=== PATIENT | female | born 1995 | race Caucasian/White ===

== ENCOUNTER 2017-11-13 12:41 | Emergency (ER) | payer SELFPAY ==
[~2017-11-13] VITALS: Ht 162.6 cm; Wt 70.3 kg
[2017-11-13 13:25] LABS: BILIRUBIN,URINE NEG (NEG); CLARITY,URINE CLEAR; COLOR,URINE YELLOW; GLUCOSE,URINE NEG (NEG); NITRITE,URINE NEG (NEG); UROBILINOGEN,URINE 0.2 mg/dL (0.2 mg/dL)
--- NOTE | 2017-11-13 15:06 | PHYS DOC ---
Past History Past Medical History: No Pertinent History, Ovarian Cyst Past Surgical History: Other Smoking: Cigarettes Alcohol Use: None Drug Use: None Adult General Chief Complaint Chief Complaint: FLANK PAIN HPI HPI 22-year-old female patient states she thinks she is going to have a UTI because she has some discomfort feeling in her flank and low back for the last few days without dyspnea. Patient also complaining of some rash in her genital area for the same time with mild itching without vaginal discharge, abdominal pain, new sexual partner, history of STD. Review of Systems Review of Systems Constitutional: Denies fever or chills [] Eyes: Denies change in visual acuity, redness, or eye pain [] HENT: Denies nasal congestion or sore throat [] Respiratory: Denies cough or shortness of breath [] Cardiovascular: No additional information not addressed in HPI [] GI: Denies abdominal pain, nausea, vomiting, bloody stools or diarrhea [] : Denies dysuria or hematuria, reports flank pain and urinary frequency Musculoskeletal: Denies back pain or joint pain [] Integument: Denies rash or skin lesions [] Neurologic: Denies headache, focal weakness or sensory changes [] Endocrine: Denies polyuria or polydipsia [] All other systems were reviewed and found to be within normal limits, except as documented in this note. Allergies Allergies Allergies Coded Allergies Type Severity Reaction Last Updated Verified No Known Drug Allergies 04/02/16 No Physical Exam Physical Exam Constitutional: Well developed, well nourished, no acute distress, non-toxic appearance. [] HENT: Normocephalic, atraumatic, bilateral external ears normal, oropharynx moist, no oral exudates, nose normal. [] Eyes: PERRLA, EOMI, conjunctiva normal, no discharge. [] Neck: Normal range of motion, no tenderness, supple, no stridor. [] Cardiovascular:Heart rate regular rhythm, no murmur [] Lungs & Thorax: Bilateral breath sounds clear to auscultation [] Abdomen: Bowel sounds normal, soft, no tenderness, no masses, no pulsatile masses. [ Vaginal exam with present of e commerce manager showed no external genital lesion or rash , mild vaginal discharge without tenderness or adnexal masses or bleeding] Skin: Warm, dry, no erythema, no rash. [] Back: No tenderness, no CVA tenderness. [] Extremities: No tenderness, no cyanosis, no clubbing, ROM intact, no edema. [] Neurologic: Alert and oriented X 3, normal motor function, normal sensory function, no focal deficits noted. [] Psychologic: Affect normal, judgement normal, mood normal. [] Current Patient Data Vital Signs Vital Signs Date Time Temp Pulse Resp B/P (MAP) Pulse Ox O2 Delivery O2 Flow Rate FiO2 11/13/17 14:18 71 16 117/60 (79) 99 Room Air 11/13/17 12:53 97.7 Lab Results Laboratory Tests Test 11/13/17 12:50 11/13/17 13:11 Urine Collection Type Unknown Urine Color Yellow Urine Clarity Clear Urine pH 6.0 Urine Specific [place] 1.020 Urine Protein Neg (NEG-TRACE) Urine Glucose (UA) Neg mg/dL (NEG) Urine Ketones (Stick) Neg mg/dL (NEG) Urine Blood Neg (NEG) Urine Nitrite Neg (NEG) Urine Bilirubin Neg (NEG) Urine Urobilinogen Dipstick 0.2 mg/dL (0.2 mg/dL) Urine Leukocyte Esterase Neg (NEG) POC Urine HCG, Qualitative hcg negative (Negative) EKG EKG [] Radiology/Procedures Radiology/Procedures [] Course & Med Decision Making Course & Med Decision Making Pertinent Labs reviewed. (See chart for details) discharge: I've spoken with the patient and/or caregivers. I've explained the patient's condition, diagnosis and treatment plan based on information available to me at this time. I've answered the patient's and/or caregivers questions and addressed any concerns. The patient and/or caregivers have a good understanding the patient's diagnosis, condition and treatment plan as can be expected at this point. Vital signs have been stabilized. The patient's condition is stable for discharge from the emergency department. The patient will pursue further outpatient evaluation with her primary care provider or other designated consulting physician as outlined in the discharge instructions. Patient and/or caregivers are agreeable to this plan of care and follow-up instructions have been explained in detail. The patient and/or caregivers have received these instructions in written format and expressed understanding of these discharge instructions. The patient and her caregivers are aware that if any significant change in condition or worsening of symptoms should prompt him to immediately return to this of the closest emergency department. If an emergent department is not readily available I would encourage him to call 911. [] Jojo Disclaimer Dragon Disclaimer This electronic medical record was generated, in whole or in part, using a voice recognition dictation system. Departure Departure: Impression: Primary Impression: Bacterial vaginitis Disposition: HOME, SELF-CARE (At 1543) Condition: STABLE Referrals: PCP,NO (PCP) Patient Instructions: Vaginitis, [id number] Additional Instructions: Drink plenty of liquids Follow-up with your primary care physician in 3-5 days Return to ER if not getting better Scripts Metronidazole (FLAGYL) 500 Mg Tablet 1 TAB PO BID, #14 TAB Prov: CLARENCE WHYTE MD 11/13/17 CLARENCE WHYTE MD Nov 13, 2017 15:06
[2017-11-13] MEDS ORDERED: METR500T PO (15:47)
[2017-11-13 15:58] VITALS: BP 116/64
[2017-11-14 14:11] LABS: CHLAMYDIA PROBE Negative (Negative)
== END 2017-11-13 16:01 | disposition home or self-care (01) ==
LOC: ER 12:41
DX: N76.0 Acute vaginitis (principal); B96.89 Other specified bacterial agents as the cause of diseases classified elsewhere; F17.210 Nicotine dependence, cigarettes, uncomplicated; R21 Rash and other nonspecific skin eruption; L29.9 Pruritus, unspecified
CPT/HCPCS: 36415; 81003; 81025; 87491; 87591; 99284; Q0111

== ENCOUNTER 2018-03-09 18:13 | Emergency (ER) | payer SELFPAY ==
[~2018-03-09] VITALS: Ht 162.6 cm; Wt 70.3 kg
[~2018-03-09 18:13] MED LIST: METR500T PO
--- NOTE | 2018-03-09 19:00 | PHYS DOC ---
Past History Past Medical History: No Pertinent History, Ovarian Cyst Past Surgical History: Other Smoking: Cigarettes Alcohol Use: None Drug Use: None Adult General Chief Complaint Chief Complaint: PAIN ON URINATION [facility] HPI 22-year-old female presents with dysuria and increased urinary frequency. Last 2 days. She has a history of urinary tract infections and this feels like one. She denies vaginal discharge. She has no concern for STD. She denies any other symptoms or complaints. She has no fever. Review of Systems Review of Systems Constitutional: Denies fever or chills [] Eyes: Denies change in visual acuity, redness, or eye pain [] HENT: Denies nasal congestion or sore throat [] Respiratory: Denies cough or shortness of breath [] Cardiovascular: No additional information not addressed in HPI [] GI: Denies abdominal pain, nausea, vomiting, bloody stools or diarrhea [] : Has dysuria and urinary frequency [] Musculoskeletal: Denies back pain or joint pain [] Integument: Denies rash or skin lesions [] Neurologic: Denies headache, focal weakness or sensory changes [] Endocrine: Denies polyuria or polydipsia [] All other systems were reviewed and found to be within normal limits, except as documented in this note. Allergies Allergies Allergies Coded Allergies Type Severity Reaction Last Updated Verified No Known Drug Allergies 04/02/16 No Physical Exam Physical Exam Constitutional: Well developed, well nourished, no acute distress, non-toxic appearance. [] HENT: Normocephalic, atraumatic, bilateral external ears normal, oropharynx moist, no oral exudates, nose normal. [] Eyes: PERRLA, EOMI, conjunctiva normal, no discharge. [] Neck: Normal range of motion, no tenderness, supple, no stridor. [] Cardiovascular:Heart rate regular rhythm, no murmur [] Lungs & Thorax: Bilateral breath sounds clear to auscultation [] Abdomen: Bowel sounds normal, soft, no tenderness, no masses, no pulsatile masses. [] Skin: Warm, dry, no erythema, no rash. [] Back: No tenderness, no CVA tenderness. [] Extremities: No tenderness, no cyanosis, no clubbing, ROM intact, no edema. [] Neurologic: Alert and oriented X 3, normal motor function, normal sensory function, no focal deficits noted. [] Psychologic: Affect normal, judgement normal, mood normal. [] EKG EKG [] Radiology/Procedures Radiology/Procedures [] Course & Med Decision Making Course & Med Decision Making Pertinent Labs and Imaging studies reviewed. (See chart for details) The patient's labs show that she has a UTI. I will treat her with Keflex 1 g twice a day for 3 days. [] Dragon Disclaimer Dragon Disclaimer This electronic medical record was generated, in whole or in part, using a voice recognition dictation system. Departure Departure: Referrals: PCP,NO (PCP) ROBSON WEBER DO Mar 09, 2018 19:00
[2018-03-09 19:07] LABS: BILIRUBIN,URINE NEG (NEG); CLARITY,URINE HAZY; COLOR,URINE YELLOW; GLUCOSE,URINE NEG (NEG); NITRITE,URINE NEG (NEG); UROBILINOGEN,URINE 0.2 mg/dL (0.2 mg/dL)
[2018-03-09 19:08] LABS: BACTERIA,URINE MANY /HPF (0-FEW); SQUAMOUS EPITHELIAL CELL,UR MANY /LPF; WBC,URINE 20-40 /HPF (0-4)
[2018-03-09] MEDS ORDERED: CEPH-264 PO (19:16)
== END 2018-03-09 19:20 | disposition home or self-care (01) ==
LOC: ER 18:13
DX: N39.0 Urinary tract infection, site not specified (principal); F17.210 Nicotine dependence, cigarettes, uncomplicated
CPT/HCPCS: 81001; 87086; 99284

== ENCOUNTER 2020-10-19 19:40 | Emergency (ER) | payer SELFPAY ==
[~2020-10-19] VITALS: Ht 162.6 cm; Wt 71.0 kg
[~2020-10-19 19:40] MED LIST changes: +CEPH-264 PO
[2020-10-19 19:50] VITALS: BP 109/62
== END 2020-10-19 21:20 | disposition left against medical advice (07) ==
LOC: ER 19:40
DX: Z48.00 Encounter for change or removal of nonsurgical wound dressing (principal); Z53.21 Procedure and treatment not carried out due to patient leaving prior to being seen by health care provider

== ENCOUNTER 2021-01-20 19:35 | Emergency (ER) | payer SELFPAY ==
[~2021-01-20] VITALS: Ht 162.6 cm; Wt 71.0 kg
--- NOTE | 2021-01-20 20:11 | PHYS DOC ---
Past History Past Medical History: Bipolar Past Surgical History: Other Additional Past Surgical Histo: OVARIAN CYST Smoking: Cigarettes Alcohol Use: Rarely Drug Use: None General Adult HPI: HPI: Patient is a 25 year old female presents with the chief complaint of redness and swelling of her finger x 2 months. Patient states yesterday she would up with swelling along her right ring finger. Patient states she was bitten by a spider. On exam of right ring finger there is a small area of pus. Patients cap refill of fingers < 2 seconds. Patient is concerned about MRSA-- s tates for 1 week she has been using an Rx topical medications that was prescribed to her mother for cellulitis--- Medication starts with "M" Patient is very anxious on exam. Review of Systems: Review of Systems: Constitutional: Denies fever or chills Eyes: Denies change in visual acuity HENT: Denies nasal congestion or sore throat Respiratory: Denies cough or shortness of breath Cardiovascular: Denies chest pain or edema GI: Denies abdominal pain, nausea, vomiting, bloody stools or diarrhea : Denies dysuria Musculoskeletal: Denies back pain or joint pain Integument: Denies rash Neurologic: Denies headache, focal weakness or sensory changes Endocrine: Denies polyuria or polydipsia Lymphatic: Denies swollen glands Psychiatric: Denies depression or anxiety Allergies: Allergies: Allergies Coded Allergies Type Severity Reaction Last Updated Verified codeine Allergy Unknown 10/19/20 Yes Physical Exam: PE: Constitutional: Well developed, well nourished, no acute distress, non-toxic appearance. [] HENT: Normocephalic, atraumatic, bilateral external ears normal, oropharynx moist, no oral exudates, nose normal. [] Eyes: PERRLA, EOMI, conjunctiva normal, no discharge. [] Neck: Normal range of motion, no tenderness, supple, no stridor. [] Cardiovascular:Heart rate regular rhythm, no murmur [] Lungs & Thorax: Bilateral breath sounds clear to auscultation [] Abdomen: Bowel sounds normal, soft, no tenderness, no masses, no pulsatile masses. [] Skin: Warm, dry, no erythema, no rash. [] Back: No tenderness, no CVA tenderness. [] Extremities: No tenderness, no cyanosis, no clubbing, ROM intact, no edema. [] Neurologic: Alert and oriented X 3, normal motor function, normal sensory function, no focal deficits noted. [] Psychologic: Affect normal, judgement normal, mood normal. [] EKG: EKG: [] Radiology/Procedures: Radiology/Procedures: [] Heart Score: C/O Chest Pain: N/A Risk Factors: Risk Factors: DM, Current or recent (<one month) smoker, HTN, HLP, family history of CAD, obesity. Risk Scores: Score 0 - 3: 2.5% MACE over next 6 weeks - Discharge Home Score 4 - 6: 20.3% MACE over next 6 weeks - Admit for Clinical Observation Score 7 - 10: 72.7% MACE over next 6 weeks - Early Invasive Strategies Course & Med Decision Making: Course & Med Decision Making Pertinent Labs and Imaging studies reviewed. (See chart for details) []let applied to finger-- abscess-- 11 blade used to puncture and drain pus. Small amount of pus expressed. Patient tolerated procedure. Rx keflex. Jojo Disclaimer: Jojo Disclaimer: This electronic medical record was generated, in whole or in part, using a voice recognition dictation system. Departure Departure: Impression: Primary Impression: Cellulitis Additional Impression: Cellulitis and abscess of finger, unspecified Disposition: HOME / SELF CARE / HOMELESS Condition: STABLE Referrals: PCP,ROSANGELA (PCP) Patient Instructions: Abscess, Cellulitis Scripts Cephalexin (CEPHALEXIN) 500 Mg Tablet 1 TAB PO QID for 10 Days, #40 TAB Prov: RC DOMINIQUE DO 01/20/21 RC DOMINIQUE DO January 20, 2021 20:11
[2021-01-20] MEDS: LIDOCAINE/EPI/TETRACAINE TOPICAL GEL 3 ML. TP ONE (20:23)
[2021-01-20] MEDS ORDERED: CEPH500T PO (20:53)
[2021-01-20 21:15] VITALS: BP 110/64
== END 2021-01-20 21:15 | disposition home or self-care (01) ==
LOC: ER 19:35
DX: L03.011 Cellulitis of right finger (principal); F17.210 Nicotine dependence, cigarettes, uncomplicated
CPT/HCPCS: 26010; 99283-25

== ENCOUNTER 2021-10-05 12:40 | Emergency (ER) | payer SELFPAY ==
[~2021-10-05] VITALS: Ht 162.6 cm; Wt 68.0 kg
[~2021-10-05 12:40] MED LIST changes: +CEPH500T PO
[2021-10-05] MEDS ORDERED: ONDA4TAB12 PO (13:22)
--- NOTE | 2021-10-05 13:22 | PHYS DOC ---
Past History Past Medical History: Bipolar Past Surgical History: Other Additional Past Surgical Histo: OVARIAN CYST Smoking: Cigarettes Alcohol Use: Rarely Drug Use: None Adult General HPI HPI Patient is a healthy G4, P3 26-year-old female presenting for nausea. She found out she was 1 week ago via home test. Reports first day last menstrual period was approximately 5 to 6 weeks ago. She reports having nausea with early in the past which has responded well to as needed Zofran. She reports taking a friend Zofran this morning which significantly helped her symptoms, she is requesting a new prescription today until she can be seen and establish care with FIREFIGHTING EQUIPMENT SPECIALIST Review of Systems Review of Systems Fourteen body systems of review of systems have been reviewed. See HPI for pertinent positives and negative responses, other sullivan all other systems are negative, non-pertinent or non-contributory Allergies Allergies Allergies Coded Allergies Type Severity Reaction Last Updated Verified codeine Allergy Unknown 10/19/20 Yes Physical Exam Physical Exam Constitutional: Well developed, well nourished, no acute distress, non-toxic appearance. HENT: Normocephalic, atraumatic, bilateral external ears normal, oropharynx moist, no oral exudates, nose normal. Eyes: PERRLA, EOMI, conjunctiva normal, no discharge. Neck: Normal range of motion, no tenderness, supple, no stridor. Cardiovascular: Heart rate regular, sinus rhythm, no murmurs rubs or gallops Lungs & Thorax: Bilateral breath sounds clear to auscultation Abdomen: Bowel sounds normal, soft, no tenderness, no masses, no pulsatile masses. Nonsurgical abdomen, no peritoneal signs Skin: Warm, dry, no erythema, no rash. Back: No tenderness, no CVA tenderness. Extremities: No tenderness, no cyanosis, no clubbing, ROM intact, no edema. Neurologic: Alert and oriented X 3, grossly normal motor & sensory function, no focal deficits noted. Psychologic: Affect normal, judgement normal, mood normal. Current Patient Data Vital Signs Vital Signs Date Time Temp Pulse Resp B/P (MAP) Pulse Ox O2 Delivery O2 Flow Rate FiO2 10/05/21 13:37 97.9 94 18 110/46 (67) 100 Room Air Vital Signs Date Time Temp Pulse Resp B/P (MAP) Pulse Ox O2 Delivery O2 Flow Rate FiO2 10/05/21 13:37 97.9 94 18 110/46 (67) 100 Room Air Lab Results Laboratory Tests Test 10/05/21 13:18 POC Urine HCG, Qualitative hcg positive (Negative) EKG EKG [] Radiology/Procedures Radiology/Procedures [] Heart Score C/O Chest Pain: No Risk Factors: Risk Factors: DM, Current or recent (<one month) smoker, HTN, HLP, family history of CAD, obesity. Risk Scores: Risk Factors: DM, Current or recent (<one month) smoker, HTN, HLP, family history of CAD, obesity. Course & Med Decision Making Course & Med Decision Making ABCs unremarkable HPI and comprehensive physical exam nonconcerning for any emergent or surgical issues No indication for further diagnostic ER workup, intervention, or hospitalization at this time Zofran prescription administered with instructions for close FIREFIGHTING EQUIPMENT SPECIALIST follow-up given new diagnosis of Jojo Disclaimer Jojo Disclaimer This electronic medical record was generated, in whole or in part, using a voice recognition dictation system. Departure Departure: Impression: Primary Impression: Nausea/vomiting in Disposition: 01 HOME / SELF CARE / HOMELESS Condition: STABLE Referrals: PCP,NO (PCP) Scripts Ondansetron (ONDANSETRON ODT) 4 Mg Tab.rapdis 1 TAB PO PRN Q6-8HRS for nausea, #16 TAB Prov: JAKOB CLARK DO 10/05/21 JAKOB CLARK DO Oct 05, 2021 13:22
[2021-10-05 13:37] VITALS: BP 110/46
== END 2021-10-05 13:24 | disposition home or self-care (01) ==
LOC: ER 12:40
DX: O21.9 Vomiting of pregnancy, unspecified (principal); O99.331 Smoking (tobacco) complicating pregnancy, first trimester; Z3A.01 Less than 8 weeks gestation of pregnancy; Z88.5 Allergy status to narcotic agent
CPT/HCPCS: 81025; 99283

== ENCOUNTER 2021-11-09 03:42 | Emergency (ER) | payer OTHER ==
[~2021-11-09] VITALS: Ht 162.6 cm; Wt 75.4 kg
[~2021-11-09 03:42] MED LIST changes: +ONDA4TAB12 PO
[2021-11-09] MEDS ORDERED: IV DEXTROSE 5 %-0.45 % NACL 1,000 ML IV ONE (04:00)
[2021-11-09] MEDS ORDERED: IV DEXTROSE 5 %-0.45 % NACL 1,000 ML IV SCH (04:15)
[2021-11-09 04:27] VITALS: BP 120/75
[2021-11-09] MEDS ORDERED: ONDANSETRON PF 4 MG/2 ML VIAL. IVP ONE (04:30)
[2021-11-09 04:37] LABS: BASO % 1 % (0-3); EOS # 0.1 x10^3/uL (0.0-0.7); EOS % 1 % (0-3); HEMATOCRIT 38.3 % (36.0-47.0); HEMOGLOBIN 12.8 g/dL (12.0-15.5); LYMPH # 0.5 x10^3/uL (1.0-4.8); LYMPH % 7 % (24-48); MEAN CORPUSCULAR HEMOGLOBIN 32 pg (25-35); MEAN CORPUSCULAR HGB CONC 34 g/dL (31-37); MEAN CORPUSCULAR VOLUME 95 fL (79-100); MONO # 0.4 x10^3/uL (0.0-1.1); MONO % 5 % (0-9); NEUT # 6.5 x10^3uL (1.8-7.7); NEUT % 87 % (31-73); PLATELET COUNT 166 x10^3/uL (140-400); RED BLOOD COUNT 4.03 x10^6/uL (3.50-5.40); RED CELL DISTRIBUTION WIDTH 12.9 % (11.5-14.5); WHITE BLOOD COUNT 7.5 x10^3/uL (4.0-11.0)
--- NOTE | 2021-11-09 04:42 | PHYS DOC ---
Past History Past Medical History: Bipolar Past Surgical History: No Surgical History Additional Past Surgical Histo: OVARIAN CYST Smoking: Cigarettes Alcohol Use: None Drug Use: None General Adult EDM: Chief Complaint: ABDOMINAL PAIN HPI: HPI: 26 yo (LMP-"sometime in July, I'm 16 weeks ") past medical history of bipolar disorder, presents to the ED with complaints of multiple episodes of nausea, vomiting, abdominal pain "deep in the core" and diarrhea stating her children have similar symptoms. Reports occasional marijuana use- none in the past 24 hours. No associated vaginal bleeding, abnormal vaginal discharge, dysuria or hematuria. EMR was reviewed and patient was seen in emergency department October 05 for vomiting in . Has not established RESIDENTIAL PROGRAM MANAGER care for this . Review of Systems: Review of Systems: Constitutional: Denies fever or chills Eyes: Denies change in visual acuity HENT: Denies nasal congestion or sore throat Respiratory: Denies cough or shortness of breath Cardiovascular: Denies chest pain or edema GI: Denies melena, hematochezia, or hematemesis : Denies dysuria or vaginal bleeding Musculoskeletal: Denies back pain or joint pain Integument: Denies rash or diaphoresis Neurologic: Denies headache, focal weakness or sensory changes Endocrine: Denies polyuria or polydipsia Lymphatic: Denies swollen glands Psychiatric: Denies depression or anxiety Current Medications: Current Meds: Current Medications Medications (Trade) Dose Ordered Sig/Erica Start Time Stop Time Status Last Admin Dose Admin Dextrose/Sodium Chloride 1,000 ml @ 1,000 mls/hr Q1H 11/09/21 04:15 11/09/21 05:14 11/09/21 04:15 1,000 MLS/HR Ondansetron HCl (Zofran) 8 mg 1X ONCE 11/09/21 04:30 11/09/21 04:31 DC 11/09/21 04:27 8 MG Allergies: Allergies: Allergies Coded Allergies Type Severity Reaction Last Updated Verified codeine Allergy Unknown 10/19/20 Yes Physical Exam: PE: Constitutional: appears uncomfortable but not toxic, afebrile HENT: Normocephalic, atraumatic, Eyes: EOMI, conjunctiva normal, no discharge. Neck: Normal range of motion, supple, Cardiovascular: S1/2 present, regular rhythm Lungs & Thorax: Speaking in full sentences, bilateral equal chest rise, no tachypnea or increased work of breathing Abdomen: soft, abdominal straie, reports periumbilical tenderness but no grimace with deep palpation, fundus 3 cm below umbilicus-no ttp, actively vomiting in ed Skin: Warm, dry, no erythema, no rash. [] Back: No tenderness, no CVA tenderness. [] Extremities: No tenderness, no cyanosis, no lower extremity edema Neurologic: Alert and oriented X 3, normal motor function, normal sensory function, no focal deficits noted. [] Psychologic: Affect normal, judgement normal, mood normal. [] Current Patient Data: Vital Signs: Vital Signs Date Time Temp Pulse Resp B/P (MAP) Pulse Ox O2 Delivery O2 Flow Rate FiO2 11/09/21 04:27 77 18 120/75 (90) 96 Room Air 11/09/21 03:48 98.2 EKG: EKG: [] Radiology/Procedures: Radiology/Procedures: [] Heart Score: C/O Chest Pain: No Risk Factors: Risk Factors: DM, Current or recent (<one month) smoker, HTN, HLP, family history of CAD, obesity. Risk Scores: Score 0 - 3: 2.5% MACE over next 6 weeks - Discharge Home Score 4 - 6: 20.3% MACE over next 6 weeks - Admit for Clinical Observation Score 7 - 10: 72.7% MACE over next 6 weeks - Early Invasive Strategies Course & Med Decision Making: Course & Med Decision Making Pertinent Labs and Imaging studies reviewed. (See chart for details) Concern for vomiting and abdominal pain in , suspect second trimester. Patient with no active vaginal bleeding or abnormal vaginal discharge. Patient is O+, not a candidate for RhoGam. CBC and CMP unremarkable. Patient pending OB ultrasound to confirm intrauterine , exclude ectopic . On reevaluation, patient is resting comfortably, no active emesis and abdomen remains soft. Due to shift change patient was signed out to oncoming physician Dr. Phillips for further medical evaluation and disposition. Dragon Disclaimer: Angelion Disclaimer: This electronic medical record was generated, in whole or in part, using a voice recognition dictation system. Departure Departure: Impression: Primary Impression: Abdominal pain in Additional Impression: Vomiting affecting Referrals: PCP,NO (PCP) Follow up with your pcp in 1-2 days or [place] [phone] OR [facility]-Dr. Novoa [phone] Additional Instructions: FOLLOW UP WITH OBGYN: For management of [facility] RESIDENTIAL PROGRAM MANAGER [id number] [place] [address] JENNIFER CUMMINS DO Nov 09, 2021 04:42
[2021-11-09 04:51] LABS: CALCIUM 8.6 mg/dL (8.5-10.1); CREATININE 0.3 mg/dL (0.6-1.0); GFR 266.9; POTASSIUM 3.9 mmol/L (3.5-5.1)
[2021-11-09 04:57] LABS: ALBUMIN 3.5 g/dL (3.4-5.0); ALBUMIN/GLOBULIN RATIO 1.1 (1.0-1.7); TOTAL BILIRUBIN 0.5 mg/dL (0.2-1.0); TOTAL PROTEIN 6.7 g/dL (6.4-8.2)
[2021-11-09] MEDS ORDERED: PYRIDOXINE 100 MG/ML VIAL. IV ONE (05:00)
[2021-11-09] MEDS ORDERED: METOCLOPRAMIDE HCL 10 MG/2 ML VIAL. IVP ONE (05:00)
--- NOTE | 2021-11-09 06:31 | RAD ---
EXAMINATION: US OB LIMITED, 11/09/2021 5:40 AM CLINICAL INDICATION: Abdominal pain in TECHNIQUE: Grayscale, color and spectral Doppler ultrasound images of the pelvis via limited OB nicholas col. COMPARISON: None. FINDINGS: There is a single living intrauterine in cephalic position. cardiac activity seen wit h heart rate of 147 bpm. The placenta is posterior. Cervix measures 4.9 cm. BIOMETRY: Biparietal diameter: 3.31 cm, 16 weeks 2 days Head circumference: 12.67 cm, 16 weeks 3 days Abdominal circumference: 10.26 cm, 16 weeks 2 days Femur length: 2.19 cm, 16 weeks 4 days Estimated weight: 155 g Estimated gestational age by ultrasound 16 weeks 3 days, sonographic EDC 04/23/2022 IMPRESSION: Single living intrauterine with gestational age 16 weeks 3 days. Sonographic ED C 04/23/2022 Electronically signed by: Judith Sutherland MD (11/09/2021 6:29 AM) [facility]
[2021-11-09 06:35] LABS: CLARITY,URINE CLOUDY; COLOR,URINE YELLOW
[2021-11-09 06:36] LABS: BACTERIA,URINE FEW /HPF (0-FEW); GLUCOSE,URINE 500 mg/dL (NEG); NITRITE,URINE NEG (NEG); RBC,URINE 0 /HPF (0-2); SQUAMOUS EPITHELIAL CELL,UR MOD /LPF; UROBILINOGEN,URINE 0.2 mg/dL (0.2 mg/dL)
[2021-11-09 06:38] LABS: BARBITURATES NEG (NEG); BENZODIAZEPINES NEG (NEG); CANNABINOIDS POS (NEG); COCAINE NEG (NEG); METHADONE NEG (NEG); OPIATES NEG (NEG); PHENCYCLIDINE NEG (NEG)
[2021-11-09 06:43] LABS: AMPHETAMINE/METHAMPHETAMINE NEG (NEG)
[2021-11-09] MEDS ORDERED: IV NORMAL SALINE 1,000ML 1,000 ML IV ONE (06:45)
--- NOTE | 2021-11-09 06:54 | PHYS DOC ---
Past History Past Medical History: Bipolar Past Surgical History: No Surgical History Additional Past Surgical Histo: OVARIAN CYST Smoking: Cigarettes Alcohol Use: None Drug Use: None Adult General Chief Complaint Chief Complaint: ABDOMINAL PAIN [facility] Patient is a 26 year old female who presents with vomiting, diarrhea, abdominal pain in the setting of . She was seen initially by Dr. Randolph on night time nanny and I assumed care at [facility]. Review of Systems Review of Systems Constitutional: Denies fever or chills Eyes: Denies change in visual acuity, redness, or eye pain HENT: Denies nasal congestion or sore throat Respiratory: Denies cough or shortness of breath Cardiovascular: No additional information not addressed in HPI GI: as documented in HPI Musculoskeletal: Denies back pain or joint pain Integument: Denies rash or skin lesions Neurologic: Denies headache, focal weakness or sensory changes All other systems were reviewed and found to be within normal limits, except as documented in this note. Current Medications Current Medications Current Medications Medications (Trade) Dose Ordered Sig/Erica Start Time Stop Time Status Last Admin Dose Admin Dextrose/Sodium Chloride 1,000 ml @ 1,000 mls/hr Q1H 11/09/21 04:15 11/09/21 05:14 DC 11/09/21 04:15 1,000 MLS/HR Lorazepam (Ativan Inj) 0.5 mg 1X ONCE 11/09/21 06:45 11/09/21 06:46 UNV Metoclopramide HCl (Reglan Vial) 10 mg 1X ONCE 11/09/21 05:00 11/09/21 05:01 DC 11/09/21 04:54 10 MG Ondansetron HCl (Zofran) 8 mg 1X ONCE 11/09/21 04:30 11/09/21 04:31 DC 11/09/21 04:27 8 MG Pyridoxine HCl (Vitamin B6) 100 mg 1X ONCE 11/09/21 05:00 11/09/21 05:01 DC 11/09/21 05:09 100 MG Sodium Chloride 1,000 ml @ 1,000 mls/hr 1X ONCE 11/09/21 06:45 11/09/21 07:44 UNV Allergies Allergies Allergies Coded Allergies Type Severity Reaction Last Updated Verified codeine Allergy Unknown 10/19/20 Yes Physical Exam Physical Exam Constitutional: Well developed, well nourished, no acute distress, non-toxic appearance. HENT: bilateral external ears normal, oropharynx moist Eyes: PERRLA, EOMI, conjunctiva normal Neck: Normal range of motion Cardiovascular:Heart rate regular rhythm, no murmur Lungs & Thorax: normal respiratory effort Skin: Warm, dry, no erythema, no rash. Extremities: No tenderness, no cyanosis, no clubbing, ROM intact, no edema Neurologic: Alert and oriented X 3 Psychologic: Affect normal Current Patient Data Vital Signs Vital Signs Date Time Temp Pulse Resp B/P (MAP) Pulse Ox O2 Delivery O2 Flow Rate FiO2 11/09/21 04:27 77 18 120/75 (90) 96 Room Air 11/09/21 03:48 98.2 Lab Results Laboratory Tests Test 11/09/21 04:03 11/09/21 04:08 11/09/21 05:58 Creatine Kinase 145 U/L (26-192) White Blood Count 7.5 x10^3/uL (4.0-11.0) Red Blood Count 4.03 x10^6/uL (3.50-5.40) Hemoglobin 12.8 g/dL (12.0-15.5) Hematocrit 38.3 % (36.0-47.0) Mean Corpuscular Volume 95 fL (79-100) Mean Corpuscular Hemoglobin 32 pg (25-35) Mean Corpuscular Hemoglobin Concent 34 g/dL (31-37) Red Cell Distribution Width 12.9 % (11.5-14.5) Platelet Count 166 x10^3/uL (140-400) Neutrophils (%) (Auto) 87 % (31-73) H Lymphocytes (%) (Auto) 7 % (24-48) L Monocytes (%) (Auto) 5 % (0-9) Eosinophils (%) (Auto) 1 % (0-3) Basophils (%) (Auto) 1 % (0-3) Neutrophils # (Auto) 6.5 x10^3uL (1.8-7.7) Lymphocytes # (Auto) 0.5 x10^3/uL (1.0-4.8) L Monocytes # (Auto) 0.4 x10^3/uL (0.0-1.1) Eosinophils # (Auto) 0.1 x10^3/uL (0.0-0.7) Basophils # (Auto) 0.0 x10^3/uL (0.0-0.2) Maternal Serum HCG Beta Subunit 76831 mIU/mL (0-6) H Sodium Level 138 mmol/L (136-145) Potassium Level 3.9 mmol/L (3.5-5.1) Chloride Level 100 mmol/L (98-107) Carbon Dioxide Level 22 mmol/L (21-32) Anion Gap 16 (6-14) H Blood Urea Nitrogen 6 mg/dL (7-20) L Creatinine 0.3 mg/dL (0.6-1.0) L Estimated GFR (Cockcroft-Gault) 266.9 BUN/Creatinine Ratio 20 (6-20) Glucose Level 113 mg/dL (70-99) H Calcium Level 8.6 mg/dL (8.5-10.1) Total Bilirubin 0.5 mg/dL (0.2-1.0) Aspartate Amino Transferase (AST) 29 U/L (15-37) Alanine Aminotransferase (ALT) 26 U/L (14-59) Alkaline Phosphatase 50 U/L (46-116) Total Protein 6.7 g/dL (6.4-8.2) Albumin 3.5 g/dL (3.4-5.0) Albumin/Globulin Ratio 1.1 (1.0-1.7) Lipase 76 U/L (73-393) Urine Collection Type Unknown Urine Color Yellow Urine Clarity Cloudy Urine pH 8.5 Urine Specific [place] 1.020 Urine Protein Neg (NEG-TRACE) Urine Glucose (UA) 500 mg/dL (NEG) Urine Ketones (Stick) 80 mg/dL (NEG) Urine Blood Neg (NEG) Urine Nitrite Neg (NEG) Urine Bilirubin Neg (NEG) Urine Urobilinogen Dipstick 0.2 mg/dL (0.2 mg/dL) Urine Leukocyte Esterase Neg (NEG) Urine RBC 0 /HPF (0-2) Urine WBC 1-4 /HPF (0-4) Urine Squamous Epithelial Cells Mod /LPF Urine Bacteria Few /HPF (0-FEW) Urine Opiates Screen Neg (NEG) Urine Methadone Screen Neg (NEG) Urine Barbiturates Neg (NEG) Urine Phencyclidine Screen Neg (NEG) Urine Amphetamine/Methamphetamine Neg (NEG) Urine Benzodiazepines Screen Neg (NEG) Urine Cocaine Screen Neg (NEG) Urine Cannabinoids Screen Pos (NEG) Urine Ethyl Alcohol Neg (NEG) EKG EKG [] Radiology/Procedures Radiology/Procedures [] Heart Score C/O Chest Pain: No Risk Factors: Risk Factors: DM, Current or recent (<one month) smoker, HTN, HLP, family history of CAD, obesity. Risk Scores: Risk Factors: DM, Current or recent (<one month) smoker, HTN, HLP, family history of CAD, obesity. Course & Med Decision Making Course & Med Decision Making Pertinent Labs and Imaging studies reviewed. (See chart for details) 06:00: I assumed care of Ms. Donaldson at shift turnover. I did evaluate and re-examine as documented above. Labs pending. She gives hx of viral gastroenteritis type symptoms and other family members with similar. 06:45: c/o continued nausea that did initially improve after meds given earlier but now returned. Feeling anxious and that her HR is elevated but radial pulses are strong, regular, with rate of 88. Labs reviewed. No acute UTI is present and other labs normal except she has ketones in UA. Currently s/p one liter dextrose. Will give small dose of ativan and one additional liter of IVF's. NS ordered. 08:00: re-evaluated. Sleeping. IVF's running. 08:30: Observed for additional 2.5 hours after shift turnover. No vomiting. Has been receiving IV fluids. Her lab panels are all normal. No UTI is present. She is stable for discharge home. Given some Zofran use at home and recommended she follow-up with her primary OB physician. Jojo Disclaimer Jojo Disclaimer This electronic medical record was generated, in whole or in part, using a voice recognition dictation system. Departure Departure: Impression: Primary Impression: Abdominal pain in Additional Impression: Vomiting affecting Disposition: 01 HOME / SELF CARE / HOMELESS Condition: GOOD Referrals: PCP,NO (PCP) Follow up with your pcp in 1-2 days or [facility] [phone] [facility]-Dr. Novoa [phone] Patient Instructions: Viral Gastroenteritis Additional Instructions: FOLLOW UP WITH OBGYN: For management of [facility] DEPUTY PROBATION OFFICER [id number] [place] [address] Scripts Ondansetron (ONDANSETRON ODT) 4 Mg Tab.rapdis 4 MG PO Q6H for nausea or vomiting for 5 Days, #20 TAB Prov: NUZHAT BELTRAN DO 11/09/21 Problem Qualifiers NUZHAT BELTRAN DO Nov 09, 2021 06:54
[2021-11-09] MEDS ORDERED: ONDA4TAB12 PO (08:23)
== END 2021-11-09 09:07 | disposition home or self-care (01) ==
LOC: ER 03:42
DX: O21.9 Vomiting of pregnancy, unspecified (principal); R10.33 Periumbilical pain; R19.7 Diarrhea, unspecified; Z3A.16 16 weeks gestation of pregnancy; O99.332 Smoking (tobacco) complicating pregnancy, second trimester; Z88.5 Allergy status to narcotic agent
CPT/HCPCS: 36415; 76815; 80053; 80307; 81001; 82550; 83690; 84702; 85025; 86900; 86901; 96361; 96374; 96375; 99284; J2060; J2405; J2765; J3415; J7030

== ENCOUNTER 2021-12-17 10:34 | Emergency (ER) | payer OTHER ==
[~2021-12-17] VITALS: Ht 162.6 cm; Wt 71.9 kg
--- NOTE | 2021-12-17 10:53 | PHYS DOC ---
Past History Past Medical History: Bipolar (MICHAEL JARVIS APRN) Past Surgical History: No Surgical History Additional Past Surgical Histo: OVARIAN CYST (MICHAEL JARVIS APRN) Smoking: Cigarettes Alcohol Use: None Drug Use: None (MICHAEL JARVIS APRN) General Adult EDM: Chief Complaint: VOMITING IN HPI: HPI: Patient is a 26-year-old female who presents to the emergency department for nausea and vomiting over the last day and a half. Patient is approximately 22 weeks , last menstrual period July 18. Patient reports that she had 1 old Zofran tablet that she took for her nausea and vomiting yesterday and it did help with that was her last pill. Patient is G3, P2. Her OB is through the health department at . Patient reports that she has had multiple ultrasounds in the past and she has no complications with this or any previous complications with her pregnancies. Patient denies vaginal bleeding, fevers, sick exposures, diarrhea, abdominal pain. (MICHAEL JARVIS APRN) Review of Systems: Review of Systems: Constitutional: See HPI GI: See HPI : See HPI (MICHAEL JARVIS APRN) Allergies: Allergies: Allergies Coded Allergies Type Severity Reaction Last Updated Verified codeine Allergy Unknown 10/19/20 Yes (MICHAEL JARVIS APRN) Physical Exam: PE: Constitutional: Well developed, well nourished, no acute distress, non-toxic appearance. [] HENT: Normocephalic, atraumatic, bilateral external ears normal, oropharynx moist, no oral exudates, nose normal. [] Eyes: PERRL, EOMI, conjunctiva normal, no discharge. [] Neck: Normal range of motion, no stridor Cardiovascular:Heart rate regular rhythm, no murmur [] Lungs & Thorax: Bilateral breath sounds clear to auscultation [] Abdomen: Bowel sounds normal, soft, no tenderness, no masses, no pulsatile masses. [] Skin: Warm, dry, no erythema, no rash. [] Back: No tenderness, normal range of motion Extremities: No tenderness, no cyanosis, no clubbing, ROM intact, no edema. [] Neurologic: Alert and oriented X 3, normal motor function, normal sensory function, no focal deficits noted. [] Psychologic: Affect normal, judgement normal, mood normal. [] (MICHAEL JARVIS APRN) Current Patient Data: Labs: Laboratory Tests Test 12/17/21 11:00 12/17/21 13:25 White Blood Count 12.5 x10^3/uL Red Blood Count 3.86 x10^6/uL Hemoglobin 12.1 g/dL Hematocrit 35.4 % Mean Corpuscular Volume 92 fL Mean Corpuscular Hemoglobin 31 pg Mean Corpuscular Hemoglobin Concent 34 g/dL Red Cell Distribution Width 13.4 % Platelet Count 208 x10^3/uL Neutrophils (%) (Auto) 77 % Lymphocytes (%) (Auto) 15 % Monocytes (%) (Auto) 7 % Eosinophils (%) (Auto) 0 % Basophils (%) (Auto) 1 % Neutrophils # (Auto) 9.7 x10^3uL Lymphocytes # (Auto) 1.9 x10^3/uL Monocytes # (Auto) 0.8 x10^3/uL Eosinophils # (Auto) 0.0 x10^3/uL Basophils # (Auto) 0.1 x10^3/uL Sodium Level 135 mmol/L Potassium Level 3.1 mmol/L Chloride Level 99 mmol/L Carbon Dioxide Level 24 mmol/L Anion Gap 12 Blood Urea Nitrogen 7 mg/dL Creatinine 0.6 mg/dL Estimated GFR (Cockcroft-Gault) 119.9 BUN/Creatinine Ratio 12 Glucose Level 113 mg/dL Calcium Level 8.6 mg/dL Total Bilirubin 0.4 mg/dL Aspartate Amino Transf (AST/SGOT) 12 U/L Alanine Aminotransferase (ALT/SGPT) 21 U/L Alkaline Phosphatase 50 U/L Total Protein 6.7 g/dL Albumin 3.3 g/dL Albumin/Globulin Ratio 1.0 Lipase 115 U/L Urine Collection Type Clean catch Urine Color Yellow Urine Clarity Clear Urine pH 7.0 Urine Specific [place] 1.010 Urine Protein Neg Urine Glucose (UA) Neg mg/dL Urine Ketones (Stick) Trace mg/dL Urine Blood Trace Urine Nitrite Neg Urine Bilirubin Neg Urine Urobilinogen Dipstick 0.2 mg/dL Urine Leukocyte Esterase Neg Urine RBC Occ /HPF Urine WBC 1-4 /HPF Urine Squamous Epithelial Cells Mod /LPF Urine Bacteria Mod /HPF Current Medications Medications (Trade) Dose Ordered Sig/Erica Route PRN Reason Start Time Stop Time Status Last Admin Dose Admin Sodium Chloride 1,000 ml @ 1,000 mls/hr 1X ONCE IV 4/8/22 11:00 12/17/21 11:59 DC 12/17/21 11:04 Ondansetron HCl (Zofran) 4 mg 1X ONCE IVP 12/17/21 11:00 12/17/21 11:01 DC 12/17/21 11:04 Sodium Chloride 1,000 ml @ 1,000 mls/hr 1X ONCE IV 12/17/21 13:15 12/17/21 14:14 12/17/21 13:17 (MICHAEL JARVIS APRN) EKG: EKG: [] (MICHAEL JARVIS APRN) Radiology/Procedures: Radiology/Procedures: [] (MICHAEL JARVIS APRN) Heart Score: C/O Chest Pain: N/A Risk Factors: Risk Factors: DM, Current or recent (<one month) smoker, HTN, HLP, family history of CAD, obesity. Risk Scores: Score 0 - 3: 2.5% MACE over next 6 weeks - Discharge Home Score 4 - 6: 20.3% MACE over next 6 weeks - Admit for Clinical Observation Score 7 - 10: 72.7% MACE over next 6 weeks - Early Invasive Strategies (MICHAEL JARVIS APRN) Course & Med Decision Making: Course & Med Decision Making Pertinent Labs and Imaging studies reviewed. (See chart for details) [] Patient presents to the emergency department for nausea and vomiting in . Patient denies vaginal bleeding and abdominal pain. Work-up in the ER consisted of blood work, urinalysis and treatment with IV fluids and nausea medication. heart tones were obtained and they were 144. Patient's noted to have mild leukocytosis with a white blood cell count of 12.5 which is possibly due to her nausea and vomiting. Her potassium was 3.1 and this was replaced in the emergency department with supplementation. Negative lipase. Urinalysis does show urinary tract infection and patient will be treated with antibiotic was given first dose in the emergency department. She was p.o. challenged and able to tolerate oral intake. She will be discharged home with nausea medication. I discussed with patient all findings and diagnostic testing as well as the need to follow-up with PCP for further evaluation and treatment or return to the ER if any new or worsening symptoms. Strict return precautions were also discussed at length. Patient voiced understanding and agreement with the plan. Patient is hemodynamically stable at the time of disposition. (MICHAEL JARVIS APRN) Dragon Disclaimer: Dragon Disclaimer: This electronic medical record was generated, in whole or in part, using a voice recognition dictation system. (MICHAEL JARVIS APRN) Attending Co-Sign The patient was seen and interviewed as well as examined at the bedside. The chart was reviewed. The case was discussed. Agree with the plan of care. (ROBSON WEBER DO) Departure Departure: Impression: Primary Impression: Nausea and vomiting during Disposition: HOME / SELF CARE / HOMELESS Condition: GOOD Referrals: PCP,NO (PCP) Patient Instructions: ABCs of , Nausea and Vomiting, Uels-in-Hxcv Additional Instructions: You are seen in the emergency department today for nausea and vomiting in . You were noted to have a low potassium level which is likely due to the vomiting. This was replaced in the ER with supplementation. Please make sure that you are eating potassium rich foods at home like green leafy vegetables and bananas. Increase your fluids. You are being discharged home with nausea medication that you can take as needed. You are also noted to have a urinary tract infection to be treated with an antibiotic. Please avoid bladder irritants like caffeine and sugary beverages. Follow-up with your EDUCATION ADVISER tomorrow regarding your ER visit. Return to the emergency department if you develop intractable nausea or vomiting, high fevers refractory to treatment, vaginal bleeding, abdominal pain or any new or worsening concerns. Scripts Ondansetron (ONDANSETRON ODT) 4 Mg Tab.rapdis 1 TAB PO PRN Q6-8HRS for nausea for 7 Days, #28 TAB 0 Refills Prov: MICHAEL JARVIS APRN 12/17/21 Cephalexin (KEFLEX) 500 Mg Capsule 1 CAP PO TID for UTI for 7 Days, #21 CAP 0 Refills Prov: MICHAEL JARVIS APRN 12/17/21 MICHAEL JARVIS APRN Dec 17, 2021 10:53 ROBSON WEBER DO Dec 18, 2021 06:11
[2021-12-17] MEDS ORDERED: IV NORMAL SALINE 1,000ML 1,000 ML IV ONE ×2 (11:00→13:15)
[2021-12-17] MEDS ORDERED: ONDANSETRON PF 4 MG/2 ML VIAL. IVP ONE (11:00)
[2021-12-17 11:13] LABS: BASO # 0.1 x10^3/uL (0.0-0.2); BASO % 1 % (0-3); EOS % 0 % (0-3); HEMATOCRIT 35.4 % (36.0-47.0); HEMOGLOBIN 12.1 g/dL (12.0-15.5); LYMPH # 1.9 x10^3/uL (1.0-4.8); LYMPH % 15 % (24-48); MEAN CORPUSCULAR HEMOGLOBIN 31 pg (25-35); MEAN CORPUSCULAR HGB CONC 34 g/dL (31-37); MEAN CORPUSCULAR VOLUME 92 fL (79-100); MONO # 0.8 x10^3/uL (0.0-1.1); MONO % 7 % (0-9); NEUT # 9.7 x10^3uL (1.8-7.7); NEUT % 77 % (31-73); PLATELET COUNT 208 x10^3/uL (140-400); RED BLOOD COUNT 3.86 x10^6/uL (3.50-5.40); RED CELL DISTRIBUTION WIDTH 13.4 % (11.5-14.5); WHITE BLOOD COUNT 12.5 x10^3/uL (4.0-11.0)
[2021-12-17 11:21] LABS: CALCIUM 8.6 mg/dL (8.5-10.1); CREATININE 0.6 mg/dL (0.6-1.0); GFR 119.9; POTASSIUM 3.1 mmol/L (3.5-5.1)
[2021-12-17 11:27] LABS: ALBUMIN 3.3 g/dL (3.4-5.0); TOTAL BILIRUBIN 0.4 mg/dL (0.2-1.0); TOTAL PROTEIN 6.7 g/dL (6.4-8.2)
[2021-12-17 13:49] LABS: BACTERIA,URINE MOD /HPF (0-FEW); CLARITY,URINE CLEAR; COLOR,URINE YELLOW; GLUCOSE,URINE NEG (NEG); NITRITE,URINE NEG (NEG); RBC,URINE OCC /HPF (0-2); SQUAMOUS EPITHELIAL CELL,UR MOD /LPF; UROBILINOGEN,URINE 0.2 mg/dL (0.2 mg/dL)
[2021-12-17] MEDS ORDERED: ONDA4TAB12 PO (13:55)
[2021-12-17] MEDS ORDERED: CEPH500C PO (13:55)
[2021-12-17] MEDS ORDERED: POTASSIUM CHLORIDE 20 MEQ TABLET.ER. PO ONE (14:00)
[2021-12-17] MEDS ORDERED: CEPHALEXIN 250 MG CAPSULE PO ONE (14:00)
[2021-12-17 14:10] VITALS: BP 103/66
== END 2021-12-17 14:10 | disposition home or self-care (01) ==
LOC: ER 10:34
DX: O21.9 Vomiting of pregnancy, unspecified (principal); O99.332 Smoking (tobacco) complicating pregnancy, second trimester; Z3A.22 22 weeks gestation of pregnancy; Z88.5 Allergy status to narcotic agent
CPT/HCPCS: 36415; 80053; 81001; 83690; 85025; 96361; 96374; 99285; J2405; J7030

== ENCOUNTER 2021-12-18 08:18 | Emergency (ER) | payer OTHER ==
[~2021-12-18] VITALS: Ht 162.6 cm; Wt 71.9 kg
[~2021-12-18 08:18] MED LIST changes: +CEPH500C PO
[2021-12-18 08:25] VITALS: BP 155/92
[2021-12-18] MEDS ORDERED: diphenhydrAMINE 50 MG/ML VIAL IVP ONE (08:30)
[2021-12-18] MEDS ORDERED: IV NORMAL SALINE 1,000ML 1,000 ML IV ONE (08:30)
[2021-12-18] MEDS ORDERED: ONDANSETRON PF 4 MG/2 ML VIAL. IVP ONE ×2 (08:30→11:00)
[2021-12-18] MEDS ORDERED: diphenhydrAMINE 50 MG/ML VIAL ONE (08:35)
[2021-12-18] MEDS ORDERED: ONDANSETRON PF 4 MG/2 ML VIAL. ONE (08:35)
--- NOTE | 2021-12-18 08:38 | PHYS DOC ---
Past History Past Medical History: Bipolar Past Surgical History: Other Additional Past Surgical Histo: OVARIAN CYST Smoking: Cigarettes Alcohol Use: None Drug Use: None General Adult EDM: Chief Complaint: VOMITING IN HPI: HPI: 26-year-old female that is 21 weeks returns the emergency room for vomiting. The patient was prescribed Zofran but she did not go pick it up at the pharmacy yet. Rather than getting the Zofran at the pharmacy, she came to the emergency room. Her only complaint is that she keeps vomiting. She states that she has been vomiting for 2 days. She denies any complaints with the baby. Review of Systems: Review of Systems: Constitutional: Denies fever or chills Eyes: Denies change in visual acuity HENT: Denies nasal congestion or sore throat Respiratory: Denies cough or shortness of breath Cardiovascular: Denies chest pain or edema GI: Nausea, vomiting. Denies abdominal pain, bloody stools or diarrhea : Denies dysuria Musculoskeletal: Denies back pain or joint pain Integument: Denies rash Neurologic: Denies headache, focal weakness or sensory changes Endocrine: Denies polyuria or polydipsia Lymphatic: Denies swollen glands Psychiatric: Denies depression or anxiety Current Medications: Current Meds: Current Medications Medications (Trade) Dose Ordered Sig/Erica Start Time Stop Time Status Last Admin Dose Admin Diphenhydramine HCl (Benadryl) 50 mg STK-MED ONCE 12/18/21 08:35 12/18/21 08:35 DC Ondansetron HCl (Zofran) 4 mg STK-MED ONCE 12/18/21 08:35 12/18/21 08:35 DC Sodium Chloride 1,000 ml @ 1,000 mls/hr 1X ONCE 12/18/21 08:30 12/18/21 09:29 Allergies: Allergies: Allergies Coded Allergies Type Severity Reaction Last Updated Verified codeine Allergy Unknown 10/19/20 Yes Physical Exam: PE: Constitutional: Well developed, well nourished, mild acute distress, non-toxic appearance. [] HENT: Normocephalic, atraumatic, bilateral external ears normal, oropharynx moist, no oral exudates, nose normal. [] Eyes: PERRLA, EOMI, conjunctiva normal, no discharge. [] Neck: Normal range of motion, no tenderness, supple, no stridor. [] Cardiovascular:Heart rate regular rhythm, no murmur [] Lungs & Thorax: Bilateral breath sounds clear to auscultation [] Abdomen: Vomiting. Bowel sounds normal, soft, no tenderness, no masses, no pul satile masses. [] Skin: Warm, dry, no erythema, no rash. [] Back: No tenderness, no CVA tenderness. [] Extremities: No tenderness, no cyanosis, no clubbing, ROM intact, no edema. [] Neurologic: Alert and oriented X 3, normal motor function, normal sensory function, no focal deficits noted. [] Psychologic: Affect normal, judgement normal, mood normal. [] Current Patient Data: Vital Signs: Vital Signs Date Time Temp Pulse Resp B/P (MAP) Pulse Ox O2 Delivery O2 Flow Rate FiO2 12/18/21 08:25 98.2 100 18 155/92 (113) 100 Room Air EKG: EKG: [] Radiology/Procedures: Radiology/Procedures: [] Heart Score: C/O Chest Pain: N/A Risk Factors: Risk Factors: DM, Current or recent (<one month) smoker, HTN, HLP, family history of CAD, obesity. Risk Scores: Score 0 - 3: 2.5% MACE over next 6 weeks - Discharge Home Score 4 - 6: 20.3% MACE over next 6 weeks - Admit for Clinical Observation Score 7 - 10: 72.7% MACE over next 6 weeks - Early Invasive Strategies Course & Med Decision Making: Course & Med Decision Making Pertinent Labs and Imaging studies reviewed. (See chart for details) The patient's labs are unremarkable. She has been given a liter of saline, 4 mg of Zofran, and 25 mg of Benadryl IV. She has had no further vomiting. I have strongly encouraged the patient to get her Zofran prescription. She can also use Benadryl by itself or with Zofran. She is stable for discharge at this time. [] Dragon Disclaimer: Jojo Disclaimer: This electronic medical record was generated, in whole or in part, using a voice recognition dictation system. Departure Departure: Impression: Primary Impression: Nausea and vomiting during Disposition: HOME / SELF CARE / HOMELESS Condition: IMPROVED Referrals: PCPROSANGELA (PCP) Patient Instructions: Hyperemesis Gravidarum ROBSON WEBER DO Dec 18, 2021 08:38
[2021-12-18 09:18] LABS: BASO # 0.1 x10^3/uL (0.0-0.2); BASO % 1 % (0-3); EOS # 0.1 x10^3/uL (0.0-0.7); EOS % 1 % (0-3); HEMATOCRIT 35.1 % (36.0-47.0); HEMOGLOBIN 11.9 g/dL (12.0-15.5); LYMPH # 1.5 x10^3/uL (1.0-4.8); LYMPH % 14 % (24-48); MEAN CORPUSCULAR HEMOGLOBIN 32 pg (25-35); MEAN CORPUSCULAR HGB CONC 34 g/dL (31-37); MEAN CORPUSCULAR VOLUME 93 fL (79-100); MONO # 0.4 x10^3/uL (0.0-1.1); MONO % 4 % (0-9); NEUT # 8.8 x10^3uL (1.8-7.7); NEUT % 81 % (31-73); PLATELET COUNT 200 x10^3/uL (140-400); RED BLOOD COUNT 3.77 x10^6/uL (3.50-5.40); RED CELL DISTRIBUTION WIDTH 13.6 % (11.5-14.5); WHITE BLOOD COUNT 10.9 x10^3/uL (4.0-11.0)
[2021-12-18 09:29] LABS: CREATININE 0.4 mg/dL (0.6-1.0); GFR 191.5
[2021-12-18 09:35] LABS: ALBUMIN 3.3 g/dL (3.4-5.0); TOTAL BILIRUBIN 0.3 mg/dL (0.2-1.0); TOTAL PROTEIN 6.7 g/dL (6.4-8.2)
[2021-12-18 09:40] LABS: CALCIUM 8.5 mg/dL (8.5-10.1)
[2021-12-18 09:43] LABS: POTASSIUM 4.1 mmol/L (3.5-5.1)
[2021-12-18 11:09] LABS: BARBITURATES NEG (NEG); BENZODIAZEPINES NEG (NEG); CANNABINOIDS POS (NEG); COCAINE NEG (NEG); METHADONE NEG (NEG); OPIATES NEG (NEG); PHENCYCLIDINE NEG (NEG)
[2021-12-18 11:11] LABS: AMPHETAMINE/METHAMPHETAMINE NEG (NEG)
[2021-12-18 11:21] LABS: AMORPHOUS SEDIMENT,UR PRESENT /HPF; BACTERIA,URINE 0 /HPF (0-FEW); CLARITY,URINE HAZY; COLOR,URINE YELLOW; GLUCOSE,URINE NEG (NEG); NITRITE,URINE NEG (NEG); RBC,URINE 0 /HPF (0-2); SQUAMOUS EPITHELIAL CELL,UR FEW /LPF; UROBILINOGEN,URINE 0.2 mg/dL (0.2 mg/dL); WBC,URINE 0 /HPF (0-4)
== END 2021-12-18 11:02 | disposition home or self-care (01) ==
LOC: ER 08:18
DX: O21.9 Vomiting of pregnancy, unspecified (principal); O99.332 Smoking (tobacco) complicating pregnancy, second trimester; Z3A.21 21 weeks gestation of pregnancy; Z88.5 Allergy status to narcotic agent
CPT/HCPCS: 36415; 80053; 80307; 81001; 85025; 96361; 96374; 96375; 96376; 99284; J1200; J2405; J7030